=== PATIENT | male | born 1975 | race Caucasian/White ===

== ENCOUNTER 2022-05-13 13:38 | Emergency (ER) | payer OTHER ==
[~2022-05-13] VITALS: Ht 188 cm; Wt 119.3 kg
[2022-05-13 13:50] VITALS: BP 146/114
[2022-05-13 14:41] LABS: BASOPHILS # (AUTO) 0.1 K/uL (0.00-0.22); BASOPHILS % (AUTO) 1.3 % (0.0-2.0); EOSINOPHILS # (AUTO) 0.4 K/uL (0-0.4); EOSINOPHILS % (AUTO) 6.8 % (0.0-4.0); HEMATOCRIT 37.7 % (36-52); HEMOGLOBIN 12.3 g/dL (12.0-18.0); LYMPHOCYTES # (AUTO) 1.3 K/uL (2.0-11.5); MEAN CORPUSCULAR HEMOGLOBIN 29 pg (27-31); MEAN CORPUSCULAR HGB CONC 33 g/dL (33-37); MEAN CORPUSCULAR VOLUME 88.9 fL (80-94); MONOCYTES # (AUTO) 0.8 K/uL (0.8-1.0); MONOCYTES % (AUTO) 12.1 % (1.7-9.3); NEUTROPHILS # (AUTO) 3.9 K/uL (1.8-7.7); NEUTROPHILS % (AUTO) 59.8 % (42.2-75.2); PLATELET COUNT (AUTO) 279 K/uL (140-450); RED BLOOD CELL COUNT(AUTO) 4.25 MIL/uL (4.20-6.10); RED CELL DISTRIBUTION WIDTH 18.2 % (11.6-13.7); WHITE BLOOD COUNT (AUTO) 6.5 K/uL (4.8-10.8)
[2022-05-13 15:12] LABS: ALBUMIN 3.3 g/dL (3.4-5.0); ANION GAP 12.2 (8-16); CARBON DIOXIDE 24.6 mmol/L (21-32); CREATININE 0.9 mg/dL (0.6-1.3); POTASSIUM 3.8 mmol/L (3.5-5.1); TOTAL BILIRUBIN 0.3 mg/dL (0.0-1.0)
[2022-05-13] MEDS ORDERED: BACITRACIN OINT 500 UNITS/GM PKT TP ONE (15:15)
--- NOTE | 2022-05-13 15:33 | NUR ---
46 Y/O MALE BIB SELF C/O BILATERAL LEG SWELLING X6 MONTHS, NOTED PITTING EDEMA ON BILATERAL LEGS. PER PT HE HAD A SKIN GRAFT DONE ON BOTH LEGS 2 YEARS AGO. DENIES ANY RECENT FALLS OR TRAUMA. NKA PMH: GRAVE'S DISEASE, ARRYTHMIA, HTN
[2022-05-13] MEDS ORDERED: ACET-10509 PO (16:04)
[2022-05-13] MEDS ORDERED: IBUP-2213 PO (16:04)
[2022-05-13] MEDS ORDERED: BACTO TP (16:04)
[2022-05-13] MEDS ORDERED: FURO-572 PO (16:04)
[2022-05-13] MEDS ORDERED: KETOROLAC 30 MG/ML VIAL IM ONE (16:05)
--- NOTE | 2022-05-13 16:40 | NUR ---
Patient discharged with v/s stable. Written and verbal after care instructions ABOUT HOW TO CHANGE YOUR WOUND DRESSING AND PERIPHERAL EDEMA given and explained. Patient alert, oriented and verbalized understanding of instructions. Ambulatory with steady gait. All questions addressed prior to discharge. ID band removed. Patient advised to follow up with PMD. Rx of TYLENOL, BACTROBAN, LASIX, MOTRIN given. Patient educated on indication of medication including possible reaction and side effects. Opportunity to ask questions provided and answered.
== END 2022-05-13 16:40 | disposition home or self-care (01) ==
LOC: MED 13:38
DX: R60.0 Localized edema (principal); I10 Essential (primary) hypertension; I25.10 Atherosclerotic heart disease of native coronary artery without angina pectoris; Z98.890 Other specified postprocedural states
CPT/HCPCS: 36415; 71045; 80053; 83880; 84484; 85025; 93970; 96372; 99285; J1885; Q0092

== ENCOUNTER 2022-10-29 10:10 | Emergency (ER) | payer OTHER ==
[~2022-10-29] VITALS: Ht 177.8 cm; Wt 86.2 kg
[~2022-10-29 10:10] MED LIST: ACET-10509 PO; BACTO TP; FURO-572 PO; IBUP-2213 PO
[2022-10-29 10:53] VITALS: RESP 20; TEMP 98; O2SAT 100
[2022-10-29 11:00] VITALS: BP 168/99; PULSE 95; RESP 17; TEMP 97.4; O2SAT 98
[2022-10-29] MEDS ORDERED: LIDOCAINE/EPI MPF 1%1:200000 30 ML VIAL INJ ONE (11:20)
[2022-10-29] MEDS ORDERED: BACITRACIN OINT 500 UNITS/GM PKT TP ONE (11:20)
[2022-10-29] MEDS ORDERED: HYDROcodone/APAP 5/325 MG 1 TAB TAB PO ONE (11:20)
[2022-10-29 11:21] VITALS: O2SAT 98
[2022-10-29] MEDS ORDERED: FLUORESCEIN OPTH STRIP 1 MG OP ONE (13:05)
[2022-10-29] MEDS ORDERED: TETRACAINE HCL/PF 0.5% OPTH 4 ML BTL OP ONE (13:05)
[2022-10-29 13:22] VITALS: O2SAT 98
== END 2022-10-29 14:00 | disposition home or self-care (01) ==
LOC: MED 10:10
DX: S01.112A Laceration without foreign body of left eyelid and periocular area, initial encounter (principal); H20.9 Unspecified iridocyclitis; M54.2 Cervicalgia; I10 Essential (primary) hypertension; Z86.39 Personal history of other endocrine, nutritional and metabolic disease; Z79.899 Other long term (current) drug therapy; Z79.1 Long term (current) use of non-steroidal anti-inflammatories (NSAID); Y08.89XA Assault by other specified means, initial encounter; Y93.89 Activity, other specified; Y92.89 Other specified places as the place of occurrence of the external cause; Y99.8 Other external cause status
CPT/HCPCS: 12013; 70450; 70486; 72125; 90471; 90715; 99285; J2001